=== PATIENT | female | born 1965 | race Caucasian/White ===

== ENCOUNTER → 2016-11-12 | Outpatient (CLI) | payer OTHER ==
--- NOTE | 2016-11-12 23:11 | MR ---
EXAMINATION TYPE: MR lumbar spine wo con DATE OF EXAM: 11/12/2016 COMPARISON: NONE HISTORY: LBP, numbness/tingling in left leg TECHNIQUE: Multiplanar, multisequence images of the lumbar spine were acquired. Lumbar vertebra have normal alignment. Disc spaces are fairly normal for age. There is no spinal sten osis. Lumbar nerve roots appear normal. The neural foramina are fairly well-maintained. There is a sm all posterior central L5-S1 disc herniation without significant compromise of the spinal canal. There are small sacral cysts at the S2 level. There is no paraspinal mass. There is no compression fractur e. I see no focal bone destruction. IMPRESSION: There is a mild posterior central L5-S1 disc herniation without compromise of the neural elements. No fracture. No spinal stenosis.
== END | disposition home or self-care (01) ==
LOC: RADMRIMAIN 20:42
PROVIDERS: ATTEND Physical Medicine & Rehabilitation
DX: M51.27 Other intervertebral disc displacement, lumbosacral region (principal); M43.12 Spondylolisthesis, cervical region; M47.22 Other spondylosis with radiculopathy, cervical region
CPT/HCPCS: 72148

== ENCOUNTER 2017-04-14 22:16 | Inpatient (IN) | payer BC, OTHER ==
[2017-04-14] MEDS ORDERED: SODIUM CHLORIDE 0.9% 1,000 ML IV STA (22:53)
--- NOTE | 2017-04-14 23:08 | ED ---
General Adult HPI - General Chief complaint: Syncope Stated complaint: syncope Time Seen by Provider: 04/14/17 22:32 Source: patient, RN notes reviewed, old records reviewed Mode of arrival: wheelchair Limitations: no limitations - History of Present Illness Initial comments: 51-year-old female presents for evaluation of nausea vomiting diarrhea and syncopal episode. Patient states that earlier in the day she was feeling fine. Had some right shoulder pain which is chronic. She took a anti-inflammatory medication, shortly thereafter patient developed some diarrhea, she states this was watery and she had several episodes of significant volume. She then developed some nausea and vomiting. Wall vomiting the patient did have a syncopal episode, fell striking the back of her head on the toilet. She was only unconscious momentarily. Chief complaint at the time my evaluation his right shoulder pain and mild right anterior chest pain. Denies any central chest pain. Denies abdominal pain. Patient still has persistent nausea and lightheadedness. Denies dysuria. Denies focal weakness. - Related Data Home Medications Medication Instructions Recorded Confirmed Albuterol Inhaler [Ventolin Hfa 1 - 2 puff INHALATION RT-Q6H PRN 04/14/17 Inhaler] Escitalopram [Lexapro] 5 mg PO DAILY 04/14/17 04/14/17 Estrogens, Conjugated Cream 1 applicator VAGINAL DAILY 04/14/17 04/14/17 [Premarin Cream] Fluticasone/Salmeterol [Advair 1 puff INHALATION RT-BID 04/14/17 04/14/17 250-50 Diskus] Omeprazole (Unknown Dose) 1 tab PO DAILY 04/14/17 04/14/17 Unknown Thyroid Medication 1 tab PO DAILY 04/14/17 04/14/17 acetaZOLAMIDE [Diamox] 125 mg PO DAILY 04/14/17 04/14/17 Allergies Allergy/AdvReac Type Severity Reaction Status Date / Time codeine Allergy Unknown Verified 04/14/17 22:51 morphine Allergy Unknown Verified 04/14/17 22:51 Sulfa (Sulfonamide Allergy Unknown Verified 04/14/17 22:51 Antibiotics) Review of Systems ROS Statement: Those systems with pertinent positive or pertinent negative responses have been documented in the HPI. ROS Other: All systems not noted in ROS Statement are negative. Past Medical History Past Medical History: Thyroid Disorder History of Any Multi-Drug Resistant Organisms: None Reported Past Surgical History: Hysterectomy Past Psychological History: Depression Smoking Status: Never smoker Past Alcohol Use History: Daily Past Drug Use History: None Reported General Exam Limitations: no limitations General appearance: alert, in no apparent distress Head exam: Present: atraumatic, normocephalic Eye exam: Present: normal appearance, PERRL ENT exam: Present: mucous membranes dry Neck exam: Present: normal inspection. Absent: tenderness, meningismus Respiratory exam: Present: normal lung sounds bilaterally. Absent: respiratory distress, wheezes Cardiovascular Exam: Present: regular rate, normal rhythm GI/Abdominal exam: Present: soft. Absent: distended, tenderness, guarding Extremities exam: Present: normal inspection, normal capillary refill. Absent: pedal edema Neurological exam: Present: alert, oriented X3, CN II-XII intact. Absent: motor sensory deficit Psychiatric exam: Present: normal affect, normal mood Skin exam: Present: warm, dry, intact, diaphoretic. Absent: cyanosis Course Vital Signs 04/14/17 04/14/17 04/14/17 22:23 22:47 23:01 Temperature 98.5 F Pulse Rate 83 Pulse Rate [ 80 79 Sports Recruiter ] Respiratory 18 20 Rate Blood Pressure 95/52 Blood Pressure 110/68 [Right Arm Sitting] Blood Pressure 118/71 [Right Arm Supine] O2 Sat by Pulse 99 Oximetry 04/14/17 23:42 Temperature Pulse Rate 88 Pulse Rate [ [employer] Rec[employer]iter ] Respiratory 20 Rate Blood Pressure 130/81 Blood Pressure [Right Arm Sitting] Blood Pressure [Right Arm Supine] O2 Sat by Pulse 98 Oximetry EKG Findings - EKG Comments: EKG Findings:: EKG shows normal sinus rhythm, ventricular rate 84, para over 118 , QRS duration 86, QTC 441. No signs of ST segment elevation or depression Medical Decision Making - Medical Decision Making 51-year-old female presenting with vomiting diarrhea and syncopal episode. Patient did have head trauma. CT the head is obtained, is negative for intracranial hemorrhage, CT cervical spine negative for fracture or subluxation. Chest x-ray obtained is negative for focal pneumonia or acute intrathoracic process. Laboratory studies reveal white blood cell count 20.3, hemoglobin stable 15.4, d-dimer is elevated at 2.96, and CT angiography will be obtained. Electrolytes within normal limits, troponin negative. Patient is symptomatic with orthostatic vital signs. Regarding elevated white blood cell count, blood culture and urine culture, this may be reactive secondary to vomiting. UA pending. Influenza is pending CT angiography is ordered for syncopal episode with elevated d-dimer, this is negative for pulmonary embolism or dissection, there is incidental finding of 4.3 cm ascending aortic aneurysm. Echo will be obtained. Patient will be observed, continued on IV hydration, repeat laboratory studies will be obtained in the morning. - Lab Data Result diagrams: 04/14/17 22:45 04/14/17 22:45 Lab Results 04/14/17 04/14/17 04/14/17 Range/Units 22:45 22:45 22:45 WBC 20.3 H (3.8-10.6) k/uL RBC 5.04 (3.80-5.40) m/uL Hgb 15.4 (11.4-16.0) gm/dL Hct 50.5 H (34.0-46.0) % MCV 100.2 H (80.0-100.0) fL MCH 30.5 (25.0-35.0) pg MCHC 30.5 L (31.0-37.0) g/dL RDW 13.8 (11.5-15.5) % Plt Count 343 (150-450) k/uL Neutrophils % 93 % Lymphocytes % 3 % Monocytes % 4 % Eosinophils % 1 % Basophils % 0 % Neutrophils # 18.8 H (1.3-7.7) k/uL Lymphocytes # 0.6 L (1.0-4.8) k/uL Monocytes # 0.7 (0-1.0) k/uL Eosinophils # 0.1 (0-0.7) k/uL Basophils # 0.1 (0-0.2) k/uL PT (9.0-12.0) sec INR (<1.2) APTT (22.0-30.0) sec D-Dimer (<0.60) mg/L FEU Sodium 140 (137-145) mmol/L Potassium 3.9 (3.5-5.1) mmol/L Chloride 104 (98-107) mmol/L Carbon Dioxide 26 (22-30) mmol/L Anion Gap 10 mmol/L BUN 24 H (7-17) mg/dL Creatinine 1.00 (0.52-1.04) mg/dL Est GFR (MDRD) Af Amer >60 (>60 ml/min/1.73 sqM) Est GFR (MDRD) Non-Af 58 (>60 ml/min/1.73 sqM) Glucose 117 H (74-99) mg/dL Calcium 9.5 (8.4-10.2) mg/dL Magnesium 2.0 (1.6-2.3) mg/dL Total Bilirubin 0.5 (0.2-1.3) mg/dL AST 24 (14-36) U/L ALT 32 (9-52) U/L Alkaline Phosphatase 63 (38-126) U/L Total Creatine Kinase 114 (30-135) U/L CK-MB (CK-2) 2.2 (0.0-2.4) ng/mL CK-MB (CK-2) Rel Index 1.9 Troponin I <0.012 (0.000-0.034) ng/mL Total Protein 6.8 (6.3-8.2) g/dL Albumin 4.3 (3.5-5.0) g/dL 04/14/17 Range/Units 22:45 WBC (3.8-10.6) k/uL RBC (3.80-5.40) m/uL Hgb (11.4-16.0) gm/dL Hct (34.0-46.0) % MCV (80.0-100.0) fL MCH (25.0-35.0) pg MCHC (31.0-37.0) g/dL RDW (11.5-15.5) % Plt Count (150-450) k/uL Neutrophils % % Lymphocytes % % Monocytes % % Eosinophils % % Basophils % % Neutrophils # (1.3-7.7) k/uL Lymphocytes # (1.0-4.8) k/uL Monocytes # (0-1.0) k/uL Eosinophils # (0-0.7) k/uL Basophils # (0-0.2) k/uL PT 9.6 (9.0-12.0) sec INR 1.0 (<1.2) APTT 22.7 (22.0-30.0) sec D-Dimer 2.96 H (<0.60) mg/L FEU Sodium (137-145) mmol/L Potassium (3.5-5.1) mmol/L Chloride (98-107) mmol/L Carbon Dioxide (22-30) mmol/L Anion Gap mmol/L BUN (7-17) mg/dL Creatinine (0.52-1.04) mg/dL Est GFR (MDRD) Af Amer (>60 ml/min/1.73 sqM) Est GFR (MDRD) Non-Af (>60 ml/min/1.73 sqM) Glucose (74-99) mg/dL Calcium (8.4-10.2) mg/dL Magnesium (1.6-2.3) mg/dL Total Bilirubin (0.2-1.3) mg/dL AST (14-36) U/L ALT (9-52) U/L Alkaline Phosphatase (38-126) U/L Total Creatine Kinase (30-135) U/L CK-MB (CK-2) (0.0-2.4) ng/mL CK-MB (CK-2) Rel Index Troponin I (0.000-0.034) ng/mL Total Protein (6.3-8.2) g/dL Albumin (3.5-5.0) g/dL Disposition Clinical Impression: Syncope due to orthostatic hypotension, Vomiting and diarrhea Disposition: ADMITTED IP TO THIS [facility] Condition: Stable Referrals: Eliazar Brock DO [Primary Care Provider] - 1-2 days Decision to Admit Reason: Admit from EC Decision Date: 04/15/17 Decision Time: 00:29
[2017-04-14 23:16] LABS: Basophils # (A) 0.1 k/uL (0-0.2); Basophils % (A) 0 %; Eosinophils # (A) 0.1 k/uL (0-0.7); Eosinophils % (A) 1 %; HCT 50.5 % (34.0-46.0); HGB 15.4 gm/dL (11.4-16.0); Lymphocytes # (A) 0.6 k/uL (1.0-4.8); Lymphocytes % (A) 3 %; MCH 30.5 pg (25.0-35.0); MCHC 30.5 g/dL (31.0-37.0); MCV 100.2 fL (80.0-100.0); Monocytes # (A) 0.7 k/uL (0-1.0); Monocytes % (A) 4 %; Neutrophils # (A) 18.8 k/uL (1.3-7.7); Neutrophils % (A) 93 %; Platelet Count 343 k/uL (150-450); RBC 5.04 m/uL (3.80-5.40); RDW 13.8 % (11.5-15.5); WBC 20.3 k/uL (3.8-10.6)
[2017-04-14 23:24] LABS: D-Dimer 2.96 mg/L FEU (<0.60)
[2017-04-14 23:28] LABS: ALT 32 U/L (9-52); AST 24 U/L (14-36); Albumin 4.3 g/dL (3.5-5.0); Alkaline Phosphatase 63 U/L (38-126); Anion Gap 10 mmol/L; Blood Urea Nitrogen 24 mg/dL (7-17); Calcium 9.5 mg/dL (8.4-10.2); Carbon Dioxide 26 mmol/L (22-30); Chloride 104 mmol/L (98-107); Glucose 117 mg/dL (74-99); Partial Thromboplastin Time 22.7 sec (22.0-30.0); Potassium 3.9 mmol/L (3.5-5.1); Prothrombin Time 9.6 sec (9.0-12.0); Sodium 140 mmol/L (137-145); Total Bilirubin 0.5 mg/dL (0.2-1.3); Total Protein 6.8 g/dL (6.3-8.2)
[2017-04-14 23:37] LABS: Creatine Kinase 114 U/L (30-135)
[2017-04-14] MEDS ORDERED: RX INFO: IV CONTRAST WAS GIVEN 1 EACH MISC MISCELLANE PRN (23:37)
--- NOTE | 2017-04-14 23:48 | CT ---
EXAMINATION TYPE: CT brain juan dangelo DATE OF EXAM: 04/14/2017 COMPARISON: NONE HISTORY: 1495.[address] Head pain. Neck pain. CT DLP: syncope mGycm Automated exposure control for dose reduction was used. TECHNIQUE: CT scan of the head and cervical spine are performed without contrast. FINDINGS: Ventricles appear normal. There is no mass effect nor midline shift. There is no sign of intracranial hemorrhage. The calvarium appears intact. There is some mucosal thickening in the maxill desi sinuses. Cervical vertebra have normal alignment. Skull base is intact. There is moderate spondylosis at C6-7 with spurring of the endplates. Posterior elements are intact. There is no evidence for fracture. IMPRESSION: Negative CT scan of the brain. Maxillary sinusitis. Moderate spondylosis at C6-7. No fracture.
[2017-04-14 23:50] LABS: Creatine Kinase MB 2.2 ng/mL (0.0-2.4); Troponin I <0.012 ng/mL (0.000-0.034)
[2017-04-14] MEDS ORDERED: diphenhydrAMINE 50 MG/ML 1 ML VIAL IVP STA (23:53)
[2017-04-14] MEDS ORDERED: methylPREDNISolone SOD SUCCI 125 MG/2 ML VIAL IV STA (23:53)
[2017-04-14] MEDS ORDERED: FAMOTIDINE 20 MG/2 ML VIAL IV STA (23:53)
--- NOTE | 2017-04-15 00:03 | XR ---
EXAMINATION TYPE: XR chest 2V DATE OF EXAM: 04/14/2017 COMPARISON: NONE HISTORY: Syncope TECHNIQUE: Frontal and lateral views of the chest are obtained. FINDINGS: Heart and mediastinum are normal. Lungs are clear of infiltrate. There is hiatal hernia. T here is no sign of pleural effusion. There is mild spurring in the thoracic spine. IMPRESSION: No active cardiopulmonary disease.
[2017-04-15] MEDS ORDERED: ACETAMINOPHEN TAB 325 MG TAB PO STA (00:30)
--- NOTE | 2017-04-15 00:34 | CT ---
EXAMINATION TYPE: CT angio chest DATE OF EXAM: 04/15/2017 12:20 AM COMPARISON: NONE HISTORY: R/O PE CT DLP: 291.50 mGycm Automated exposure control for dose reduction was used. CONTRAST: CTA scan of the thorax is performed with IV Contrast, patient injected with 70 mL of Visipaque 320, p ulmonary embolism protocol. There are 3-D post processed images.. FINDINGS: The lungs are clear of infiltrate. There is no evidence of a pulmonary mass. There is moderate hiatal hernia noted. There is aneurysm of ascending aorta measures 4.3 cm. There is no sign of dissection. I see no filling defects in the pulmonary arteries. There is no mediastinal adenopathy. There are no hilar masses. There is no pleural effusion. There is spurring in the thoracic spine. IMPRESSION: NO EVIDENCE OF PULMONARY EMBOLISM. ANEURYSM OF ASCENDING AORTA. HIATAL HERNIA.
[2017-04-15] MEDS ORDERED: ACETAMINOPHEN TAB 325 MG TAB PO PRN (00:47)
[2017-04-15] MEDS ORDERED: NALOXONE 0.4 MG/ML 1 ML VIAL IV PRN (00:47)
[2017-04-15] MEDS ORDERED: ONDANSETRON 4 MG/2 ML VIAL IVP PRN (00:47)
[2017-04-15 00:55] LABS: Appearance,Urine Clear (Clear); Bilirubin,Urine Negative (Negative); Blood,Urine Negative (Negative); Color,Urine Yellow; Glucose,Urine (UA) Negative (Negative); Ketones,Urine 1+ (Negative); Leukocyte Esterase,Urine Negative (Negative); Mucus,Urine Occasional /hpf; Nitrite,Urine Negative (Negative); Protein,Urine 2+ (Negative); RBC,Urine 1 /hpf (0-5); Squamous Epithelial Cell,Urine 2 /hpf (0-4); Urobilinogen,Urine <2.0 mg/dL (<2.0); WBC,Urine <1 /hpf (0-5)
[2017-04-15 00:56] LABS: Specific Gravity,Urine >1.050 (1.001-1.035)
[2017-04-15] MEDS: SODIUM CHLORIDE 0.9% 1,000 ML IV SCH ×2 (01:25→12:19)
[2017-04-15 02:21] VITALS: BMI 28.3
[2017-04-15] MEDS ORDERED: ALBUTEROL NEBULIZED 2.5 MG/3 ML INHALATION PRN (06:49)
[2017-04-15] MEDS ORDERED: HYDROmorphone 0.5 MG/0.5 ML SYRINGE IM PRN (06:53)
[2017-04-15] MEDS: PANTOPRAZOLE 40 MG TABLET PO SCH (07:45)
[2017-04-15] MEDS: acetaZOLAMIDE 250 MG TAB PO SCH (08:04)
[2017-04-15] MEDS: ESCITALOPRAM 5 MG TAB PO SCH (08:04)
[2017-04-15 08:24] LABS: Basophils % (A) 0 %; Eosinophils % (A) 0 %; HCT 42.4 % (34.0-46.0); HGB 13.3 gm/dL (11.4-16.0); Lymphocytes # (A) 0.2 k/uL (1.0-4.8); Lymphocytes % (A) 1 %; MCH 30.9 pg (25.0-35.0); MCHC 31.3 g/dL (31.0-37.0); MCV 98.6 fL (80.0-100.0); Mean Platelet Volume 8.1; Monocytes # (A) 0.2 k/uL (0-1.0); Monocytes % (A) 2 %; Neutrophils # (A) 14.3 k/uL (1.3-7.7); Neutrophils % (A) 97 %; Platelet Count 258 k/uL (150-450); RDW 13.4 % (11.5-15.5); WBC 14.8 k/uL (3.8-10.6)
[2017-04-15] MEDS: SYMBICORT 80-4.5 MCG INHALER INHALATION SCH ×2 (08:32→19:38)
[2017-04-15 08:42] LABS: Anion Gap 10 mmol/L; Blood Urea Nitrogen 24 mg/dL (7-17); Calcium 8.6 mg/dL (8.4-10.2); Carbon Dioxide 23 mmol/L (22-30); Chloride 107 mmol/L (98-107); Glucose 153 mg/dL (74-99); Potassium 4.1 mmol/L (3.5-5.1); Sodium 140 mmol/L (137-145)
[2017-04-15] MEDS ORDERED: OMEPRAZOLE PO SCH (09:00)
[2017-04-15] MEDS ORDERED: ESTROGENS, CONJUGATED 0.625 MG/GM VAGINAL CREAM 42.5 GM TUBE VAGINAL SCH (09:00)
[2017-04-15] MEDS ORDERED: [UNRECOGNIZED DRUG - OTHER] PO SCH (09:00)
--- NOTE | 2017-04-15 11:54 | ECHOF ---
Referral Reason:syncope MEASUREMENTS -------- HEIGHT: 177.8 cm WEIGHT: 81.6 kg BP: 124/69 RVIDd: 3.2 cm (< 3.3) IVSd: 1.0 cm (0.6 - 1.1) LVIDd: 4.2 cm (3.9 - 5.3) LVPWd: 1.1 cm (0.6 - 1.1) IVSs: 1.6 cm LVIDs: 2.0 cm LVPWs: 1.6 cm LAESV Index (A-L): 16.67 ml/m Ao Diam: 2.9 cm (2.0 - 3.7) AV Cusp: 1.7 cm (1.5 - 2.6) LA Diam: 3.7 cm (2.7 - 3.8) EPSS: 0.4 cm MV E Chris: 1.04 m/s MV DecT: 309 ms MV A Chris: 1.21 m/s MV E/A Ratio: 0.85 RAP: 5.00 mmHg RVSP: 38.25 mmHg MV EF SLOPE: 76.09 mm/s (70 - 150) MV EXCURSION: 1.76 cm (> 18.000) FINDINGS -------- Sinus rhythm. This was a technically good study. The left ventricular size is normal. Left ventricular wall thickness is normal. Overall left vent ricular systolic function is normal with, an EF between 65 - 70 %. The right ventricle is normal in size and function. Normal LA size by volume 22+/-6 ml/m2. The right atrium is normal in size. Aortic valve is trileaflet and is mildly thickened. There is no evidence of aortic regurgitation. There is no evidence of aortic stenosis. The mitral valve leaflets are mildly thickened. There is trace to mild mitral regurgitation. Mild tricuspid regurgitation present. There is mild pulmonary hypertension. The right ventricular systolic pressure, as measured by Doppler, is 38.25mmHg. The pulmonic valve was not well visualized. The aortic root size is normal. Normal inferior vena cava with normal inspiratory collapse consistent with estimated right atrial pre ssure of 5 mmHg. The pericardium is normal. There is no pericardial effusion. CONCLUSIONS -------- 1. Sinus rhythm. 2. This was a technically good study. 3. The left ventricular size is normal. 4. Left ventricular wall thickness is normal. 5. Overall left ventricular systolic function is normal with, an EF between 65 - 70 %. 6. Normal LA size by volume 22+/-6 ml/m2. 7. Aortic valve is trileaflet and is mildly thickened. 8. The mitral valve leaflets are mildly thickened. 9. There is trace to mild mitral regurgitation. 10. Mild tricuspid regurgitation present. 11. There is mild pulmonary hypertension. 12. The right ventricular systolic pressure, as measured by Doppler, is 38.25mmHg. 13. The pulmonic valve was not well visualized. 14. The aortic root size is normal. 15. There is no pericardial effusion. SKIDDER OPERATOR: Kali Montano RDCS
[2017-04-15] MEDS: LEVOTHYROXINE 50 MCG TAB PO SCH (12:18)
[2017-04-15] MEDS: KETOROLAC 30 MG/ML 1 ML VIAL IVP PRN ×2 (14:12→23:03)
--- NOTE | 2017-04-15 15:07 | P.GSCN ---
<TrippNicoleVal M - Last Filed: 04/15/17 14:57> History of Present Illness Consult date: 04/15/17 Reason for Consult: Emesis History of present illness: 51-year-old female being seen at the request of the attending for a surgical eval in a patient who developed a sudden onset of nausea vomiting diarrhea with a syncopal episode. Patient states that she took an [id number] anti- inflammatory medication for chronic right shoulder pain shortly after taking it developed watery stools felt nauseated started vomiting. stated she had several episodes. Subsequently was admitted to the services of the attending. On current exam states since being admitted has not had any further episodes of nausea vomiting taking a full diet and has not had any diarrhea. Computed tomography scan of the chest showed no evidence of a pulmonary emboli. It did show ascending aortic aneurysm 4.3. Moderate hiatal hernia noted echocardiogram left ventricular systolic function normal EF between 65 and 70% mild pulmonary hypertension computed tomography scan of the cervical spine negative for fracture negative CT of the brain Review of Systems Essentially unremarkable except as mentioned in the present illness Past Medical History Past Medical History: Asthma, Thyroid Disorder Additional Past Medical History / Comment(s): Hypothyroid History of Any Multi-Drug Resistant Organisms: None Reported Past Surgical History: Hysterectomy Smoking Status: Never smoker Medications and Allergies Home Medications Medication Instructions Recorded Confirmed Type Albuterol Inhaler [Ventolin Hfa 1 - 2 puff INHALATION RT-Q6H PRN 04/14/17 History Inhaler] Escitalopram [Lexapro] 5 mg PO DAILY 04/14/17 04/14/17 History Estrogens, Conjugated Cream 1 applicator VAGINAL DAILY 04/14/17 04/14/17 History [Premarin Cream] Fluticasone/Salmeterol [Advair 1 puff INHALATION RT-BID 04/14/17 04/14/17 History 250-50 Diskus] acetaZOLAMIDE [Diamox] 125 mg PO DAILY 04/14/17 04/14/17 History Levothyroxine Sodium [Synthroid] 50 mcg PO DAILY 04/15/17 04/15/17 History Omeprazole [PriLOSEC] 20 mg PO AC-BRKFST 04/15/17 04/15/17 History Allergies Allergy/AdvReac Type Severity Reaction Status Date / Time egg Allergy Abdominal Verified 04/15/17 02:50 Pain Milk Containing Products Allergy Abdominal Verified 04/15/17 02:50 [Dairy] Pain Sulfa (Sulfonamide Allergy Unknown Verified 04/15/17 02:50 Antibiotics) codeine AdvReac Hallucinati Verified 04/15/17 01:57 ons morphine AdvReac Hallucinati Verified 04/15/17 01:57 ons Surgical - Exam Vital Signs Temp Pulse Resp BP Pulse Ox 98.5 F 83 18 95/52 99 04/14/17 22:23 04/14/17 22:23 04/14/17 22:23 04/14/17 22:23 04/14/17 22:23 GENERAL APPEARANCE: patient is alert, oriented x 3 , in no acute distress. Resting in bed VITAL SIGNS: Reviewed HEENT: Head is normocephalic and atraumatic. Pupils are equal and reactive. The nares are patent. Oropharynx is clear without lesions. NECK: Supple without lymphadenopathy. Traches midline. HEART: S1, S2. Regular rate and rhythm. No murmur noted LUNGS: No crackles or wheezes are heard. Adequate air movement bilaterally ABDOMEN: Soft, nontender, nondistended with good bowel sounds. No peritoneal signs. No palpable organomegaly or masses currently denying any abdominal pain states no nausea vomiting currently eating potato skins. States has not had a bowel movement since admission no abdominal pain EXTREMITIES: Normal skin color and turgor. No cyanosis, rash, ulceration, clubbing or edema. Radial pedal pulses are 2/4 bilaterally. NEUROLOGICAL: No focal deficits. Strength and sensation are grossly intact. Results - Labs 04/15/17 08:02 04/15/17 08:02 Abnormal Lab Results - Last 24 Hours (Table) 04/14/17 04/14/17 04/14/17 Range/Units 22:45 22:45 22:45 WBC 20.3 H (3.8-10.6) k/uL Hct 50.5 H (34.0-46.0) % MCV 100.2 H (80.0-100.0) fL MCHC 30.5 L (31.0-37.0) g/dL Neutrophils # 18.8 H (1.3-7.7) k/uL Lymphocytes # 0.6 L (1.0-4.8) k/uL D-Dimer 2.96 H (<0.60) mg/L FEU BUN 24 H (7-17) mg/dL Glucose 117 H (74-99) mg/dL Ur Specific [place] (1.001-1.035) Urine Protein (Negative) Urine Ketones (Negative) Urine Mucus (None) /hpf 04/15/17 04/15/17 04/15/17 Range/Units 00:29 08:02 08:02 WBC 14.8 H (3.8-10.6) k/uL Hct (34.0-46.0) % MCV (80.0-100.0) fL MCHC (31.0-37.0) g/dL Neutrophils # 14.3 H (1.3-7.7) k/uL Lymphocytes # 0.2 L (1.0-4.8) k/uL D-Dimer (<0.60) mg/L FEU BUN 24 H (7-17) mg/dL Glucose 153 H (74-99) mg/dL Ur Specific [place] >1.050 H (1.001-1.035) Urine Protein 2+ H (Negative) Urine Ketones 1+ H (Negative) Urine Mucus Occasional H (None) /hpf Microbiology - Last 24 Hours (Table) 04/15/17 00:29 Urine Culture - Preliminary Urine,Voided Diabetes panel 04/14/17 04/15/17 Range/Units 22:45 08:02 Sodium 140 140 (137-145) mmol/L Potassium 3.9 4.1 (3.5-5.1) mmol/L Chloride 104 107 (98-107) mmol/L Carbon Dioxide 26 23 (22-30) mmol/L BUN 24 H 24 H (7-17) mg/dL Creatinine 1.00 0.72 (0.52-1.04) mg/dL Glucose 117 H 153 H (74-99) mg/dL Calcium 9.5 8.6 (8.4-10.2) mg/dL AST 24 (14-36) U/L ALT 32 (9-52) U/L Alkaline Phosphatase 63 (38-126) U/L Total Protein 6.8 (6.3-8.2) g/dL Albumin 4.3 (3.5-5.0) g/dL Calcium panel 04/14/17 04/15/17 Range/Units 22:45 08:02 Calcium 9.5 8.6 (8.4-10.2) mg/dL Albumin 4.3 (3.5-5.0) g/dL Pituitary panel 04/14/17 04/15/17 Range/Units 22:45 08:02 Sodium 140 140 (137-145) mmol/L Potassium 3.9 4.1 (3.5-5.1) mmol/L Chloride 104 107 (98-107) mmol/L Carbon Dioxide 26 23 (22-30) mmol/L BUN 24 H 24 H (7-17) mg/dL Creatinine 1.00 0.72 (0.52-1.04) mg/dL Glucose 117 H 153 H (74-99) mg/dL Calcium 9.5 8.6 (8.4-10.2) mg/dL Adrenal panel 04/14/17 04/15/17 Range/Units 22:45 08:02 Sodium 140 140 (137-145) mmol/L Potassium 3.9 4.1 (3.5-5.1) mmol/L Chloride 104 107 (98-107) mmol/L Carbon Dioxide 26 23 (22-30) mmol/L BUN 24 H 24 H (7-17) mg/dL Creatinine 1.00 0.72 (0.52-1.04) mg/dL Glucose 117 H 153 H (74-99) mg/dL Calcium 9.5 8.6 (8.4-10.2) mg/dL Total Bilirubin 0.5 (0.2-1.3) mg/dL AST 24 (14-36) U/L ALT 32 (9-52) U/L Alkaline Phosphatase 63 (38-126) U/L Total Protein 6.8 (6.3-8.2) g/dL Albumin 4.3 (3.5-5.0) g/dL Assessment and Plan Assessment: Impression Present on admission nausea vomiting diarrhea likely due to gastroenteritis with stool negative for C. diff Present on admission Elevated d-dimer with a CAT scan of the chest show no evidence of a pulmonary emboli Echocardiogram preserved LV function EF 65-70% Present on admission leukocytosis likely reactive Presyncopal episode present on admission suspect due to hypovolemia due to dehydration poor oral intake Plan No evidence of acute surgical abdomen IV fluid for hydration Will follow with you Defer to the attending to address medical issues as they arise DVT and GI prophylaxis Consultation dictated for Dr. wynne The above impression and plan of care have been discussed and directed by signing physician. Val Almaguer nurse practitioner acting as scribe for signing physician. <Boubacar Wynne - Last Filed: 04/15/17 15:28> Surgical - Exam Vital Signs Temp Pulse Resp BP Pulse Ox 98.5 F 83 18 95/52 99 04/14/17 22:23 04/14/17 22:23 04/14/17 22:23 04/14/17 22:23 04/14/17 22:23 Results - Labs 04/15/17 08:02 04/15/17 08:02 Abnormal Lab Results - Last 24 Hours (Table) 04/14/17 04/14/17 04/14/17 Range/Units 22:45 22:45 22:45 WBC 20.3 H (3.8-10.6) k/uL Hct 50.5 H (34.0-46.0) % MCV 100.2 H (80.0-100.0) fL MCHC 30.5 L (31.0-37.0) g/dL Neutrophils # 18.8 H (1.3-7.7) k/uL Lymphocytes # 0.6 L (1.0-4.8) k/uL D-Dimer 2.96 H (<0.60) mg/L FEU BUN 24 H (7-17) mg/dL Glucose 117 H (74-99) mg/dL Ur Specific [place] (1.001-1.035) Urine Protein (Negative) Urine Ketones (Negative) Urine Mucus (None) /hpf 04/15/17 04/15/17 04/15/17 Range/Units 00:29 08:02 08:02 WBC 14.8 H (3.8-10.6) k/uL Hct (34.0-46.0) % MCV (80.0-100.0) fL MCHC (31.0-37.0) g/dL Neutrophils # 14.3 H (1.3-7.7) k/uL Lymphocytes # 0.2 L (1.0-4.8) k/uL D-Dimer (<0.60) mg/L FEU BUN 24 H (7-17) mg/dL Glucose 153 H (74-99) mg/dL Ur Specific [place] >1.050 H (1.001-1.035) Urine Protein 2+ H (Negative) Urine Ketones 1+ H (Negative) Urine Mucus Occasional H (None) /hpf Microbiology - Last 24 Hours (Table) 04/15/17 00:29 Urine Culture - Preliminary Urine,Voided Diabetes panel 04/14/17 04/15/17 Range/Units 22:45 08:02 Sodium 140 140 (137-145) mmol/L Potassium 3.9 4.1 (3.5-5.1) mmol/L Chloride 104 107 (98-107) mmol/L Carbon Dioxide 26 23 (22-30) mmol/L BUN 24 H 24 H (7-17) mg/dL Creatinine 1.00 0.72 (0.52-1.04) mg/dL Glucose 117 H 153 H (74-99) mg/dL Calcium 9.5 8.6 (8.4-10.2) mg/dL AST 24 (14-36) U/L ALT 32 (9-52) U/L Alkaline Phosphatase 63 (38-126) U/L Total Protein 6.8 (6.3-8.2) g/dL Albumin 4.3 (3.5-5.0) g/dL Calcium panel 04/14/17 04/15/17 Range/Units 22:45 08:02 Calcium 9.5 8.6 (8.4-10.2) mg/dL Albumin 4.3 (3.5-5.0) g/dL Pituitary panel 04/14/17 04/15/17 Range/Units 22:45 08:02 Sodium 140 140 (137-145) mmol/L Potassium 3.9 4.1 (3.5-5.1) mmol/L Chloride 104 107 (98-107) mmol/L Carbon Dioxide 26 23 (22-30) mmol/L BUN 24 H 24 H (7-17) mg/dL Creatinine 1.00 0.72 (0.52-1.04) mg/dL Glucose 117 H 153 H (74-99) mg/dL Calcium 9.5 8.6 (8.4-10.2) mg/dL Adrenal panel 04/14/17 04/15/17 Range/Units 22:45 08:02 Sodium 140 140 (137-145) mmol/L Potassium 3.9 4.1 (3.5-5.1) mmol/L Chloride 104 107 (98-107) mmol/L Carbon Dioxide 26 23 (22-30) mmol/L BUN 24 H 24 H (7-17) mg/dL Creatinine 1.00 0.72 (0.52-1.04) mg/dL Glucose 117 H 153 H (74-99) mg/dL Calcium 9.5 8.6 (8.4-10.2) mg/dL Total Bilirubin 0.5 (0.2-1.3) mg/dL AST 24 (14-36) U/L ALT 32 (9-52) U/L Alkaline Phosphatase 63 (38-126) U/L Total Protein 6.8 (6.3-8.2) g/dL Albumin 4.3 (3.5-5.0) g/dL Assessment and Plan Plan: Patiently medically treated. Patient has history of GERD with a hiatal hernia. We will schedule for EGD and outpatient colonoscopy when stable.
--- NOTE | 2017-04-15 23:02 | HP ---
HISTORY AND PHYSICAL CHIEF COMPLAINT: 51-year-old white female with syncope, nausea, vomiting, and she felt fine at home. She had some right shoulder pain, chronic while she was sitting on the toilet. She developed some diarrhea and vomiting while coming off the toilet. She is vomiting. She had a syncopal episode, striking head on the toilet, unconscious momentarily. Complaining of shoulder pain, mild anterior chest pain. She did have some abdominal pain, nausea, positive lightheadedness. Denies dysuria. Frequent weakness. HOME MEDICATIONS: Advair Diskus, Premarin, Lexapro, Ventolin HFA, Synthroid, Diamox, omeprazole. ALLERGIES: CODEINE, MORPHINE, SULFA. REVIEW OF SYSTEMS: Fourteen point review of systems negative except for mentioned in HPI. PAST MEDICAL HISTORY: Hypothyroidism. SURGICAL HISTORY: Hysterectomy. PSYCH HISTORY: History of depression. SOCIAL HISTORY: Never smoker. Daily alcohol. No illicit drugs. PHYSICAL EXAM: Vital signs stable. Afebrile. Cardiovascular S1, S2. LUNGS: Clear. GI soft. Hematology negative Homans. Psych fair mood affect. NEUROLOGIC: Alert and orient x3. Vascular normal dorsalis pedis, posterior radial pulse. ABDOMEN: Soft. Blood pressure 90s -100s over 50s to 60s, temp 98.5, pulse 80s to 79, respiratory 18- 20. EKG sinus rhythm. ASSESSMENT: 1. A 51-year-old female with vomiting, diarrhea, syncopal episode. CT of the head was negative. CT of the neck was negative. Chest x-ray is negative. White count is 20.3, hemoglobin is 15.4. D-dimer is 2.96. CT angiogram was negative for any pulmonary embolism. She has a 4.3 cm ascending aortic aneurysm. 2. Leukocytosis of unclear etiology, progressive vomiting, possible viral syndrome. Infectious Disease consult. 3. Surgery for emesis. 4. Syncope. We will monitor neurologically. MMODL / IJN: [id number] /
[2017-04-16] MEDS: SODIUM CHLORIDE 0.9% 1,000 ML IV SCH (05:40)
[2017-04-16] MEDS: LEVOTHYROXINE 50 MCG TAB PO SCH (06:32)
[2017-04-16] MEDS: SYMBICORT 80-4.5 MCG INHALER INHALATION SCH (07:26)
[2017-04-16] MEDS: acetaZOLAMIDE 250 MG TAB PO SCH (07:48)
[2017-04-16] MEDS: ESCITALOPRAM 5 MG TAB PO SCH (07:48)
[2017-04-16] MEDS: PANTOPRAZOLE 40 MG TABLET PO SCH (07:49)
[2017-04-16 07:50] VITALS: BP 133/84; PULSE 77; RESP 18; TEMP 97.2
--- NOTE | 2017-04-16 07:59 | CONS ---
CONSULTATION DATE OF SERVICE: 04/15/2017 REASON FOR CONSULTATION: Leukocytosis. HISTORY OF PRESENT ILLNESS: The patient is a 51-year-old female presenting to the ER last night with chief complaints of nausea, vomiting, diarrhea and syncopal episode. Apparently yesterday in the morning, the patient was doing fine. She did have some chronic right shoulder pain for which the patient took anti-inflammatory medication after which the patient started having diarrhea. She did have significant loose stools 1 day frequency innumerable, subsequently feeling nauseous and throwing up. While vomiting the patient did have a syncopal episode. The patient fell striking the back of her head. She lost consciousness momentarily. Subsequently the patient was brought into the ER for further evaluation of the same. The patient also complaining of some shortness of breath and hard to breathe. No high-grade fever. On presentation in the ER, the patient was noticed to have a white count of 20,000. The patient did have a CT angiogram that was negative for PE, did show hiatal hernia and cardiac aneurysm. The patient did have stool for C. difficile, which was negative. Acute influenza was negative. ID was consulted for further recommendation regarding antibiotic therapy. The patient didn't receive the dose of antibiotic and white count down to 14,000. REVIEW OF SYSTEMS: CONSTITUTIONAL: Positive for weakness, but no fever. EYES: No complaint. ENT: No complaint. RESPIRATORY: As per HPI. CARDIOVASCULAR: No complaint. GENITOURINARY: No complaint. GASTROINTESTINAL: As per HPI. MUSCULOSKELETAL: No complaint. INTEGUMENTARY: No complaint. PSYCHOLOGICAL: No complaint. ENDOCRINE: No complaint. NEUROLOGICAL: As per HPI. PAST MEDICAL HISTORY: Significant for depression and hypothyroidism. PAST SURGICAL HISTORY: Hysterectomy. SOCIAL HISTORY: No history of smoking. Drinks daily. No drug use. FAMILY HISTORY: No pertinent findings noticed. ALLERGIES: Allergies to MILK CONTAINING PRODUCTS, SULFA, CODEINE, MORPHINE. MEDICATIONS: The patient is currently on Tylenol, Diamox, Ventolin, Symbicort, Lexapro, Toradol, Synthroid, Narcan, Zofran, Protonix. Did received Solu-Medrol as well. PHYSICAL EXAMINATION: On examination, her blood pressure 107/59 with a pulse of 83, temperature of 97. She is 95% on room air. General description is a middle-aged female, lying in bed, in no distress. No tachypnea or accessory muscle of respiration use. HEENT examination shows no pallor or scleral icterus. Oral mucous membrane is dry. No pharyngeal erythema or thrush NECK: Trachea central. No thyromegaly. LUNGS: Unlabored breathing, clear to auscultation, no wheeze or crackles. HEART: S1, S2. Regular rate and rhythm. No murmur ABDOMEN: Soft. There is no tenderness. No guarding or rigidity. No organomegaly. EXTREMITIES: No edema of the feet. SKIN EXAMINATION: No rash or mass palpable. NEUROLOGICAL: Patient is awake, alert, oriented x3. Mood and affect normal. LABS: Hemoglobin is 13.3, white count 14.8, admission white count was 20,000. BUN of 24, creatinine 1.0. Electrolytes have been normal. Liver enzymes are normal. Lactic acid was 1.4. Cardiac exam has been negative. Urine is negative. Influenza A/B negative. Stool for C. Difficile was negative. DIAGNOSTIC IMPRESSION AND PLAN: Patient with leukocytosis in a patient admitted to the hospital predominantly with gastrointestinal symptoms of diarrhea, nausea and vomiting. She also has a low -grade fever could have been more likely a viral gastroenteritis. Clinically doubt a bacterial infection. The patient's abdomen was soft on clinical examination and white count already showing a downward trend without use of any antibiotic therapy. PLAN: 1. Recommend obtaining a stool culture. 2. Symptomatic treatment of her illnesses with IV fluid. 3. Depending upon the clinical response as well as cultures, will adjust her medications further if needed. Thank you for this consultation. Will follow this patient along with you. MMODL / IJN: [id number] / DELORIS
[2017-04-16 08:10] LABS: Basophils % (A) 0 %; Eosinophils % (A) 0 %; HCT 38.7 % (34.0-46.0); HGB 11.9 gm/dL (11.4-16.0); Lymphocytes # (A) 0.8 k/uL (1.0-4.8); Lymphocytes % (A) 13 %; MCH 29.9 pg (25.0-35.0); MCHC 30.9 g/dL (31.0-37.0); Mean Platelet Volume 8.3; Monocytes # (A) 0.4 k/uL (0-1.0); Monocytes % (A) 6 %; Neutrophils # (A) 5.1 k/uL (1.3-7.7); Neutrophils % (A) 79 %; Platelet Count 238 k/uL (150-450); RBC 3.99 m/uL (3.80-5.40); RDW 13.6 % (11.5-15.5); WBC 6.4 k/uL (3.8-10.6)
[2017-04-16 08:36] LABS: ALT 30 U/L (9-52); AST 18 U/L (14-36); Albumin 2.7 g/dL (3.5-5.0); Alkaline Phosphatase 43 U/L (38-126); Anion Gap 6 mmol/L; Blood Urea Nitrogen 16 mg/dL (7-17); Carbon Dioxide 21 mmol/L (22-30); Chloride 112 mmol/L (98-107); Glucose 99 mg/dL (74-99); Magnesium 1.9 mg/dL (1.6-2.3); Potassium 3.7 mmol/L (3.5-5.1); Sodium 139 mmol/L (137-145); Total Bilirubin 0.1 mg/dL (0.2-1.3); Total Protein 4.9 g/dL (6.3-8.2)
--- NOTE | 2017-04-16 09:30 | DS ---
DISCHARGE SUMMARY DISCHARGE MEDICATIONS: 1. Premarin 1 application vaginally daily. 2. Advair 250/50 one puff b.i.d. 3. Ventolin HFA 2 puffs q.4 hours p.r.n. 4. Diamox 125 mg daily. 5. Lexapro 5 mg daily. 6. Prilosec 20 mg daily. 7. Synthroid 50 mg daily. CONDITION: Stable. PROGNOSIS: Guarded. Ambulate as tolerated. Regular diet. DIAGNOSES: 1. Viral gastroenteritis. 2. Vasovagal syncope. 3. Reactive leukocytosis secondary to gastroenteritis. 4. Asthma. 5. Depression. 6. Hypothyroidism. 7. Gastroesophageal reflux disease. HOSPITAL COURSE OF EVENTS: This is a white female who came in with syncope and nausea and vomiting. Stool culture was negative for any C difficile. Reactive leukocytosis improved to normal prior to discharge. Fluid rehydration, antinausea medicine was given. Surgical clearance was given. Infectious disease clearance was given. No significant findings were found. CAT scan of the head and CT of the neck were negative. She will be discharged home. Follow up as outpatient. MMODL / IJN: [id number] /
== END 2017-04-16 10:26 | disposition home or self-care (01) | DRG 392 ==
LOC: EC 22:16 → 4MS4W 04-15 00:47
PROVIDERS: ADMIT Family Medicine; ATTEND Family Medicine
DX: A08.4 Viral intestinal infection, unspecified (principal); I27.20 Pulmonary hypertension, unspecified; I71.2 Thoracic aortic aneurysm, without rupture; S06.9X1A Unspecified intracranial injury with loss of consciousness of 30 minutes or less, initial encounter; E86.0 Dehydration; R40.2362 Coma scale, best motor response, obeys commands, at arrival to emergency department; R40.2142 Coma scale, eyes open, spontaneous, at arrival to emergency department; R40.2252 Coma scale, best verbal response, oriented, at arrival to emergency department; E86.1 Hypovolemia; E03.9 Hypothyroidism, unspecified; J45.909 Unspecified asthma, uncomplicated; R55 Syncope and collapse; K21.9 Gastro-esophageal reflux disease without esophagitis; K44.9 Diaphragmatic hernia without obstruction or gangrene; F32.9 Major depressive disorder, single episode, unspecified; M25.511 Pain in right shoulder; G89.29 Other chronic pain; Z79.51 Long term (current) use of inhaled steroids; Z79.899 Other long term (current) drug therapy; Z90.710 Acquired absence of both cervix and uterus; Z88.5 Allergy status to narcotic agent; Z88.2 Allergy status to sulfonamides; Z91.012 Allergy to eggs; Z91.011 Allergy to milk products; W01.198A Fall on same level from slipping, tripping and stumbling with subsequent striking against other object, initial encounter; Y92.002 Bathroom of unspecified non-institutional (private) residence as the place of occurrence of the external cause
CPT/HCPCS: 36415; 70450; 71046; 71275; 72125; 80048; 80053; 81001; 82550; 82553; 83605; 83735; 84484; 85025; 85379; 85610; 85730; 87040; 87086; 87324; 87502; 93005; 93306; 94640; 94760; 96361; 96374; 96375; 99285